=== PATIENT | male | born 1955 | race Caucasian/White ===

== ENCOUNTER 2018-05-16 07:21 | Observation (INO) | payer BC ==
--- NOTE | 2018-05-16 06:40 | PDHPUP ---
History & Physical Update H&P update statement: This history and physical update is based on an assessment of the patient which was completed after admission or registration (within 24 hours), but prior to the surgery/procedure. H&P update: H&P reviewed & patient examined, no change in patient's condition since H&P completed
[~2018-05-16 07:21] MED LIST: ALBUTEROL 3 ML DEYVIAL IH PRN; ALBUTEROL 60 PUFFS/8 GM MDI IH PRN; BECLOMETHASONE QVAR 80 REDIHALER 120 INH/10.6 GM MDI IH PRN; BUDESONIDE 0.25 MG/2 ML AMPUL.NEB IH PRN; HYDROCODONE/APAP 5/325 TAB PO PRN; OLOPATADINE HCL NS PRN; TIOTROPIUM INHALER 18 MCG/DOSE 5 DOSE/MDI IH PRN
[2018-05-16] MEDS ORDERED: ceFAZolin 2 GM/DEXTROSE 100 ML IV ONE (07:22)
[2018-05-16] MEDS ORDERED: GABAPENTIN 300 MG CAP PO ONE (07:22)
[2018-05-16] MEDS ORDERED: ACETAMINOPHEN 500 MG TAB PO ONE (07:22)
[2018-05-16] MEDS ORDERED: LR 1,000 ML IV ONE (07:24)
[2018-05-16] MEDS ORDERED: THROMBIN (BOVINE) 5,000 UNIT VIAL TP ONE (07:35)
[2018-05-16] MEDS ORDERED: BUPIVACAINE/EPI 0.25% 30 ML SDV ONE (07:35)
[2018-05-16] MEDS ORDERED: BACITRACIN 50,000 UNITS/10 ML SYR IRR ONE (07:35)
[2018-05-16] MEDS ORDERED: CHLORHEXIDINE GLUC HIBICLENS 118 ML BTL TP ONE (07:35)
[2018-05-16] MEDS ORDERED: REMIFENTANIL HCL 1 MG VIAL ONE ×2 (08:15→10:04)
[2018-05-16] MEDS ORDERED: PROPOFOL 200 MG/20 ML VIAL ONE ×4 (08:15→10:40)
[2018-05-16] MEDS ORDERED: fentaNYL 250 MCG/5 ML INJ ONE (08:15)
[2018-05-16] MEDS ORDERED: ONDANSETRON DISINTEGRATING 4 MG TAB PO PRN (08:23)
[2018-05-16] MEDS ORDERED: ONDANSETRON 4 MG/2 ML VIAL IVP PRN ×2 (08:23→11:31)
[2018-05-16] MEDS ORDERED: LACTULOSE 20 GM/30 ML UDCUP PO PRN (08:23)
[2018-05-16] MEDS ORDERED: morphINE PCA 30 MG/30 ML PCA IV PRN (08:23)
[2018-05-16] MEDS ORDERED: NALOXONE HCL 0.4 MG/ML INJ IVP PRN ×2 (08:23→11:31)
[2018-05-16] MEDS ORDERED: BISACODYL 10 MG SUPP PR PRN (08:23)
[2018-05-16] MEDS ORDERED: POLYETHYLENE GLYCOL 3350 17 GM PKT PO PRN (08:23)
[2018-05-16] MEDS ORDERED: diphenhydrAMINE 25 MG CAP PO PRN (08:23)
[2018-05-16] MEDS ORDERED: MAGNESIUM HYDROXIDE 30 ML UDCUP PO PRN (08:23)
[2018-05-16] MEDS ORDERED: HYDROmorphONE/DILAUDID 1 MG/ML INJ IVP PRN (08:23)
[2018-05-16] MEDS ORDERED: NS 1,000 ML IV SCH (08:30)
[2018-05-16] MEDS ORDERED: ONDANSETRON 4 MG/2 ML VIAL ONE (10:07)
[2018-05-16] MEDS ORDERED: ROCURONIUM 100 MG/10 ML VIAL ONE (10:07)
[2018-05-16] MEDS ORDERED: DEXAMETHASONE 4 MG/ML VIAL ONE (10:07)
[2018-05-16] MEDS ORDERED: LIDOCAINE 2% 100 MG/5 ML SYR ONE (10:07)
[2018-05-16] MEDS ORDERED: fentaNYL 100 MCG/2 ML INJ ONE ×2 (10:55→12:01)
[2018-05-16] MEDS ORDERED: LR 500 ML IV PRN (11:31)
[2018-05-16] MEDS ORDERED: ALBUTEROL 3 ML DEYVIAL IH PRN (11:31)
[2018-05-16] MEDS ORDERED: LABETALOL HCL 5 MG/ML 20 ML MDV IVP PRN (11:31)
--- NOTE | 2018-05-16 11:31 | PDANEPAE ---
ANE Past Medical History - Cardiovascular History Hx Hypertension: No Hx Arrhythmias: No Hx Chest Pain: No Hx Coronary Artery / Peripheral Vascular Disease: No Hx CHF / Valvular Disease: No Hx Palpitations: No - Pulmonary History Hx COPD: No Hx Asthma/Reactive Airway Disease: Yes Hx Recent Upper Respiratory Infection: No Hx Oxygen in Use at Home: No Hx Sleep Apnea: Yes Sleep Apnea Screening Result - Last Documented: Positive Pulmonary History Comment: Bipap sleep apnea - Neurologic History Hx Cerebrovascular Accident: No Hx Seizures: No Hx Dementia: No - Endocrine History Hx Diabetes: No - Renal History Hx Renal Disorders: No Renal History Comment: cyst on left kidney - Liver History Hx Hepatic Disorders: No - Neurological & Psychiatric Hx Hx Neurological and Psychiatric Disorders: No - Cancer History Hx Cancer: Yes Cancer History Comment: squamous cell skin - Congenital Disorder History Hx Congenital Disorders: No - GI History Hx Gastrointestinal Disorders: No - Other Health History Other Health History: nnone - Chronic Pain History Chronic Pain: Yes (lower spine L4/5 S1) - Surgical History Prior Surgeries: sinus 2016. umbilical hernia 2016 ANE Review of Systems Review of Systems: - Exercise capacity METS (RN): 4 METS ANE Patient History - Allergies Allergies/Adverse Reactions: No Known Allergies Allergy (Verified 05/01/18 13:46) - Home Medications Home Medications: Albuterol [Proventil Inhaler HFA (*)] 1 - 2 puffs IH Q4H PRN 05/01/18 [Last Taken 05/16/18] Albuterol [Proventil Neb] 3 ml IH QID PRN 05/01/18 [Last Taken 05/12/18] Ascorbic Acid [Vitamin C 500 mg (*)] 500 mg PO BID 05/01/18 [Last Taken 05/06/18 ] Beclomethasone Qvar 80 [Qvar 80 Redihaler (*)] 2 inh IH BID PRN 05/01/18 [Last Taken 05/15/18] Budesonide [Budesonide 0.25MG/2Ml Neb (*)] 0.25 mg IH DAILY PRN 05/01/18 [Last Taken 05/12/18] Cholecalciferol Vit D3 [Vitamin D3 (*)] 1,000 units PO DAILY 05/01/18 [Last Taken 05/06/18] Cyanocobalamin [Vitamin B12 (*)] 1,000 mcg PO DAILY 05/01/18 [Last Taken ] Gabapentin [Neurontin 300 MG (*)] 300 mg PO HS 05/01/18 [Last Taken 05/12/18] Herbals/Supplements -Info Only 1 ea PO DAILY 05/01/18 [Last Taken 05/06/18] Hydrocodone/APAP 5/325 [[place] 5/325 (*)] 1 tab PO TID PRN 05/01/18 [Last Taken Unknown] Meloxicam 15 mg PO DAILY 05/01/18 [Last Taken 05/06/18] Mometasone/Formoterol [Dulera 200 Mcg/5 Mcg Inhaler] 2 puffs IH BID 05/01/18 [ Last Taken 05/16/18] Montelukast Sodium [Singulair 10 mg (*)] 10 mg PO HS 05/01/18 [Last Taken ] Multivitamins [Multivitamin (*)] 1 each PO DAILY 05/01/18 [Last Taken 05/06/18] Olopatadine HCl [Patanase] 1 spray NS DAILY PRN 05/01/18 [Last Taken 05/15/18] [place]-3 Fatty Acids [Fish Oil 1000 mg (*)] 1,000 mg PO BID 05/01/18 [Last Taken 05/06/18] Tiotropium Inhaler [Spiriva Inhaler] 1 inh IH DAILY PRN 05/01/18 [Last Taken ] - NPO status NPO Since - Liquids (Date): 05/16/18 NPO Since - Liquids (Time): 06:30 NPO Since - Solids (Date): 05/15/18 NPO Since - Solids (Time): 21:30 - Smoking Hx Smoking Status: Never smoked - Family Anes Hx Family Hx Anesthesia Complications: none ANE Labs/Vital Signs - Vital Signs Blood Pressure: 159/104 Heart Rate: 78 Respiratory Rate: 16 O2 Sat (%): 95 Height: 172.72 cm Weight: 88.451 kg ANE Physical Exam - Airway Neck exam: decreased ROM Mallampati Score: Class 2 Mouth exam: normal dental/mouth exam - Pulmonary Pulmonary: no respiratory distress - Cardiovascular Cardiovascular: regular rate and rhythym - ASA Status ASA Status: II ANE Anesthesia Plan Anesthesia Plan: general endotracheal anesthesia Urgent/Emergent Case: Nani morales completed preop but documented later for safe timely pt care
--- NOTE | 2018-05-16 12:00 | POSTOPPROG ---
Post Op Note Date of Operation: 05/16/18 Surgeon: Gypsy Lares Radiographer: CARRIE Wheeler Anesthesiologist: Gildardo Anesthesia: GET(General Endotracheal), Local (Specify) Pre-op Diagnosis: cervical stenosis C5/6 and C6/7 Post-op Diagnosis: cervical stenosis C5/6 and C6/7 Indication: LUE pain, stenosis Procedure: ACDF C5/6 and C6/7 Findings: see op report Inf/Abcess present in the surg proc area at time of surgery?: No Depth: Deep Incisional (Fascial) EBL: 100-500 Total fluids administered: see anesthesia record Complications: none
[2018-05-16] MEDS: fentaNYL 100 MCG/2 ML INJ IVP PRN ×3 (12:04→12:38)
--- NOTE | 2018-05-16 12:04 | SOAPPROG ---
SOAP Progress Note Assessment/Plan: Post Op Visit; S: Awake and alert. NAD. Pt with expected neck pain O: AFVSS/PERRLA/EOMI no droop CN 2-12 grossly intact +lt touch 5/5 BUE/BLE = CDI neck soft and supple A/P: 62 yo male that is s/p ACDF C5/6 and C6/7 -orders in place -neck soft and supple -collar in place -call with any questions or concerns -PT/OT/ST pending -pt seen by Dr Lares as well Objective: Vital Signs Temp Pulse Resp BP Pulse Ox 36.5 C 78 16 159/104 H 95 05/16/18 07:46 05/16/18 11:31 05/16/18 11:31 05/16/18 11:31 05/16/18 11:31 ICD10 Worksheet Patient Problems: Problems Problem Status Onset Cervical radicular pain Acute Cervical stenosis of spinal canal Acute Cervical vertebral fusion Acute - ICD10 Problem Qualifiers (1) Cervical stenosis of spinal canal (2) Cervical radicular pain (3) Cervical vertebral fusion
--- NOTE | 2018-05-16 12:06 | POSTANESTH ---
Post Anesthetic Evaluation Cardiovascular Status: Normal, Stable Respiratory Status: Normal, Stable Level of Consciousness/Mental Status: Can Participate in Eval Pain Control: Adequate, Prn Tx Ordered Nausea/Vomiting Control: Adequate, Prn Tx Ordered Complications Possibly Related to Anesthesia: None Noted
[2018-05-16] MEDS ORDERED: METHOCARBAMOL 750 MG TAB ONE (12:35)
[2018-05-16] MEDS: METHOCARBAMOL 750 MG TAB PO PRN ×2 (12:36→20:08)
--- NOTE | 2018-05-16 12:55 | GOP ---
DATE OF OPERATION: 05/16/2018 SURGEON: Tayler Lares MD NEUROSURGEON: Tayler Lares MD. INSTRUMENT WORKER: Jonatan Wheeler PA-C. PREOPERATIVE DIAGNOSIS: Cervical radiculopathy, left side. POSTOPERATIVE DIAGNOSIS: Cervical radiculopathy, left side. PROCEDURE PERFORMED: Anterior cervical diskectomy with arthrodesis and decompression C5-6, C6-7 ([id number], [id number]). Placement of anterior cervical plate at C5, C6, C7, same incision bone graft harvest, p lacement of biomechanical intervertebral device C5-6, C6-7, microscope. FINDINGS: ESTIMATED BLOOD LOSS: 350 cc. INDICATIONS: The patient is a 62-year-old who presented with left cervical radiculopathy. He also h ad a right lumbar radiculopathy and the cervical radiculopathy at the time he was seen was more sever e than the lumbar and I suggested cervical surgery. The risk of pseudoarthrosis, adjacent segment di sease, nerve injuries, spinal cord injury, esophageal injury, carotid injury, recurrent laryngeal ner ve injury, dysphagia, the possible need for future spine surgery was discussed. He knew there was a chance he may continue to be symptomatic despite nerve decompression, but he did want to proceed. DESCRIPTION OF PROCEDURE: The patient was taken to the operating room, placed in supine position. G eneral anesthesia was begun. He was kept in the supine position. A midline shoulder roll was placed . His arms were tucked at his side. Care was taken to pad all points of contact. His neck was ster ilely prepped and draped in usual fashion. A localizing x-ray was taken. We made an incision in the inferior neck crease on the patient's right-hand side. The subcutaneous tissue was dissected using Bovie cautery down to the platysma. We then used a combination of sharp and blunt dissection to work our way medial to the sternocleidomastoid and lateral to the strap muscles down the prevertebral spa ce. We initially dissected below the omohyoid to approach the C6-7 disk. There was a large vein red cross worker ssing from the carotid sheath medially toward the area of the thyroid and I divided this. I put a si ngle clip on each side of the vein and divided it. This gave us great exposure at C6-7. We placed a needle in the C6-7 disk and shot a localizing x-ray. We needed to go more rostrally to get to 5-6 a nd we came out more superficially and dissected just rostral to the omohyoid muscle down to the preve rtebral space and now we had excellent access to both C6-7 as well as C5-6. We dissected the longus colli muscles off the spine at C5-6, C6-7, and then removed the ventral osteophyte, C5-6, C6-7. This created some bone bleeding. His bone was actually extremely soft and the bone had a tendency to ble ed really throughout the surgery. It was a very small continuous bleed throughout surgery and this a ccounted for all the blood loss during the case. We placed distraction pins at 5 6, distracted at 5 6, removed the disk and the cartilaginous endplate under the microscope. We then drilled and harvest ed some subchondral bone for autologous grafting purposes and then opened the PLL and decompressed th e thecal sac and the neural foramina bilaterally. Performed a left foraminotomy more extensive than the right-sided foraminotomy that we performed. We then chose a 7 mm x 16 x 14 mm device. Packed it with bone autograft and inserted it at 5-6 and got a great fit. We then moved our distraction pin d own to C7, distracted at C6-7 and did likewise here. We removed the disk and the cartilaginous endpl ates. We drilled and harvested subchondral bone for autologous grafting purposes. His bone was very bloody. It was also extremely soft and this was consistent with the amount of bleeding that he tend s to have from it. Under the microscope we opened the PLL and decompressed the thecal sac and the ne ural foramen bilaterally. Again, we were more aggressive on the patient's left side than the right. We completely decompressed the exiting C7 nerve root at this level. We packed bone autograft into a 7 mm device inserted at C6-7 and got a great fit. We then shot an x-ray and confirmed the position of the devices where want them in the disk space and then prepared the ventral surface of the vertebr al body for acceptance of the plate and chose a 39 mm plate. We increased the lordosis of the plate and put a single screw at C5, a single screw at C7. I was happy with these screws and then we placed remaining 4 screws for a total of 6 screws and locked them according to company specification. We a chieved meticulous hemostasis. A final x-ray was taken. We then closed the incision in multiple lay ers using Vicryl suture. Steri-Strips were applied to the skin. The patient was reversed from anest hesia, extubated, and transferred to recovery room in stable condition. There were no complications. COMPLICATIONS: None. INSTRUMENTATION USED: [employer] Zevo plate with 3.5 x 15 mm screws. We used 7 x 16 x 14 mm anatomic PTC cage at each level. /[id number]/MODL
[2018-05-16] MEDS: FAMOTIDINE 20 MG TAB PO SCH ×2 (13:45→20:08)
[2018-05-16] MEDS: Mometasone/Formoterol [Dulera 200 Mcg/5 Mcg Inhaler] 2 PUFFS IH SCH ×2 (13:45→19:54)
[2018-05-16] MEDS: SENNOSIDES/DOCUSATE SODIUM TAB PO SCH ×2 (13:45→20:08)
[2018-05-16] MEDS: ACETAMINOPHEN 500 MG TAB PO SCH ×2 (13:52→23:03)
[2018-05-16] MEDS: ceFAZolin 2 GM/DEXTROSE 100 ML IV SCH (17:49)
[2018-05-16] MEDS: oxyCODONE IR 5 MG TAB PO PRN (20:08)
[2018-05-16] MEDS ORDERED: GABAPENTIN 300 MG CAP PO SCH (21:00)
[2018-05-16] MEDS ORDERED: MONTELUKAST SODIUM 10 MG TAB PO SCH (21:00)
[2018-05-17] MEDS: oxyCODONE IR 5 MG TAB PO PRN (00:01)
[2018-05-17] MEDS: ceFAZolin 2 GM/DEXTROSE 100 ML IV SCH (00:03)
[2018-05-17] MEDS: ACETAMINOPHEN 500 MG TAB PO SCH (06:23)
--- NOTE | 2018-05-17 07:21 | NEUSURGPN ---
Date of Surgery: 05/16/18 Post Op Day: 1 Assessment/Plan: Assessment: 62 yo male that is s/p ACDF C5/6 and C6/7 POD#1 Plan: -collar in place -call with any questions or concerns -PT/OT/ST pending -Ok to discharge home after seen by therapies -Post op xray shows stable hardware placement, no evidence for concern -pt seen by Dr Lares as well Please call neurosurgery with questions/concerns Subjective: Doing well, left arm tingling Objective: AxO x4 YAN x4 5/5 BUE Dressing CDI Collar in place Neuro Check Frequency: per routine Urinary Catheter in Place: No - Physician Discussed Patient with : Arnaud Patient Seen by : Arnaud Neurosurgery Physical Exam - Vitals, I&O, Labs I and O 05/16/18 05/17/18 05/18/18 05:59 05:59 05:59 Intake Total 3850 Output Total 3300 Balance 550 Weight 88.451 kg Intake: Oral (ml) 2200 IV Intake (ml) 1650 Output: Urine (ml) 2900 Toilet 2900 Estimated Blood Loss (ml) 400 Other: Number of Voids Toilet 1 Vital Signs Temp Pulse Resp BP Pulse Ox 37.0 C 71 16 137/81 H 91 L 05/17/18 03:10 05/17/18 03:10 05/17/18 03:10 05/17/18 03:10 05/17/18 03:10 ICD10 Worksheet Patient Problems: Problems Problem Status Onset Cervical radicular pain Acute Cervical stenosis of spinal canal Acute Cervical vertebral fusion Acute
[2018-05-17] MEDS: FAMOTIDINE 20 MG TAB PO SCH (08:10)
[2018-05-17] MEDS: SENNOSIDES/DOCUSATE SODIUM TAB PO SCH (08:10)
[2018-05-17] MEDS: Mometasone/Formoterol [Dulera 200 Mcg/5 Mcg Inhaler] 2 PUFFS IH SCH (09:21)
--- NOTE | 2018-05-17 10:14 | ASMTLACE ---
[facility] Length of stay for Answers: 2 days current admission Acuity / Level of Answers: No Care: Did the patient have an inpatient admission? # of Emergency department Answers: 0 visits in the last 6 months Score: 2 Date Signed: 05/17/2018 10:13 AM Electronically Signed By:SOLITARIO Richter
--- NOTE | 2018-05-17 10:16 | ASMTCMCOM ---
CM Note CM Note Notes: Pt had planned spinal surgery. PT/HIGHWAY SAFETY ENGINEER clear pt for home. Pt medically stable for d/c. No CM d/c needs identified. Pt resides with spouse. Date Signed: 05/17/2018 10:15 AM Electronically Signed By:SOLITARIO Richter
[2018-05-17 12:28] VITALS: BP 120/67
[2018-05-19] MEDS ORDERED: ENOXAPARIN 40 MG/0.4 ML SYR SC SCH (09:00)
--- NOTE | 2018-05-21 16:43 | GDS ---
PRIMARY DIAGNOSIS: Cervical stenosis. OPERATIONS AND PROCEDURES: May 16, 2018, patient underwent anterior cervical diskectomy and fus ion of C5-6 and C6-[address] Lares. HOSPITAL COURSE: The patient presented at [facility] on May 16, 2018, for an an terior cervical diskectomy and fusion of C5-6 and C6-7, with Dr. Lares. There were no known complic ations. Please see Dr. Lares's operative note for further details. After surgery, patient was in s table condition and transferred from the OR to the PACU in the postsurgical floor. While on the floo r, the patient received physical therapy, occupational therapy, and speech therapy. The patient's pa in was well controlled. The catheter was removed. The patient was in stable condition, and subseque ntly discharged to home on May 17, 2018. The patient is scheduled to follow up in the office wi jonah Lares in 2 weeks. They have been instructed to contact the office with any questions or conc erns at [phone]. CONSULTS: None. COMPLICATIONS: None. DISCHARGE CONDITION: Stable. DISCHARGE INSTRUCTIONS: The patient to avoid any bending or twisting of the neck. He is to avoid li fting greater than 10 pounds. The patient has been instructed to wear his hard cervical collar at al l times. The patient will avoid NSAID for the next 4-6 months. It is okay for the patient to remove outer dressing on postoperative day 3, leaving the Steri-Strips in place. It is okay for the patien t to shower on postoperative day 3. The patient will avoid submersion of the incision for the next 2 -3 weeks. The patient is scheduled to follow up in the office for postoperative visit in 2 weeks, he will call sooner with any questions or concerns. /[id number]/MODL
== END 2018-05-17 13:50 | disposition home or self-care (01) ==
LOC: F3N 07:21
PROVIDERS: ADMIT Neurological Surgery; ATTEND Neurological Surgery
DX: M54.12 Radiculopathy, cervical region (principal); G47.33 Obstructive sleep apnea (adult) (pediatric)
CPT/HCPCS: 22551; 22552; 72040; 76001; 92610; 97161; 97165; G0378; C1713; J0690; J1100; J2001; J2270; J2405; J2704; J3010